=== PATIENT | female | born 1995 | race Caucasian/White ===

== ENCOUNTER 2023-05-22 13:03 | Emergency (ER) | payer OTHER, SELFPAY ==
[2023-05-22 13:04] VITALS: BP 158/88
[2023-05-22 13:29] LABS: % Basophils 0.3 % (0-2); % Eosinophils 1.8 % (0-6); % Immature Granulocytes 0.3 % (0-0.5); % Lymphocytes 19.5 % (20.5-51.1); % Monocytes 3.8 % (1.7-9.3); % Neutrophils 74.3 % (42.2-75.2); Absolute Eosinophils 0.2 10^3/uL (0-0.7); Absolute Monocytes 0.4 10^3/uL (0.1-0.6); Absolute Neutrophils 7.5 10^3/uL (1.4-6.5); Hematocrit 39.1 % (37.0-47.0); Hemoglobin 13.3 g/dL (12.0-16.0); Mean Corpuscular Hgb 28.4 pg (27.0-31.0); Mean Corpuscular Volume 83.5 fL (81.0-99.0); Mean Platelet Volume 9.1 fL (7.4-10.4); Nucleated Red Blood Cells % 0 %; Platelet Count 336 10^3/uL (130-400); Red Blood Cell Count 4.68 10^6/uL (4.20-5.40); Red Cell Dist. Width 12.6 % (11.5-14.5)
[2023-05-22 13:34] LABS: Urine Albumin Negative (Neg - Trace); Urine Bilirubin Negative (Negative); Urine Character Clear (Clear); Urine Color Yellow; Urine Glucose 3+ (Negative); Urine Ketone Trace (Negative); Urine Leukocyte Negative (Negative); Urine Nitrite Negative (Negative); Urine Occult Blood Negative (Negative); Urine Specific Gravity 1.015 (<1.030); Urine Urobilinogen Negative (Neg - 1+)
[2023-05-22 13:43] LABS: HCG, Serum Qualitative Screen Negative
[2023-05-22 13:47] LABS: ALT (SGPT) 20 U/L (0-35); AST (SGOT) 22 U/L (14-36); Alkaline Phosphatase 116 U/L (38-126); Blood Urea Nitrogen 12 mg/dl (7-17); Calcium 8.9 mg/dl (8.4-10.2); Carbon Dioxide 25 mmol/L (22-30); Chloride 101 mmol/L (98-107); Glucose 464 mg/dl (70-99); Lipase 92 U/L (23-300); Potassium 4.6 mmol/L (3.5-5.1); Sodium 131 mmol/L (135-145); Total Bilirubin 0.6 mg/dl (0.2-1.3); Total Protein 6.4 g/dl (6.3-8.2); eGFR > 60.00
[2023-05-22 15:54] LABS: Glucose - Point of Care 457 mg/dl (70-99)
[2023-05-22] MEDS: NSS 1000 IV (16:34)
--- NOTE | 2023-05-22 17:02 | ED.GENMED ---
History of Present Illness
General
Chief Complaint: Fainting/Passed Out
Source: patient
Exam Limitations: none
Time Seen by Provider: 05/22/23 16:41
Nursing documentation reviewed up to this point in time: agreed with
Travel History
Have you had any contact with someone who has COVID-19?: No
Do you have any symptoms of coronavirus? Fever > 100 degrees, chills, cough, shortness of breath, sore throat, loss of taste or smell, muscle aches, or headache?: No
History of Present Illness
History of Present Illness:
28-year-old female with past medical history of insulin-dependent diabetes bipolar disorder previous seizure disorder presenting to the emergency department after fainting while at work. 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
warm and she was doing physical activity felt very warm lightheaded nausea and also had lower abdominal pain passed out for a brief moment was witnessed by a coworker denies any specific injuries had ongoing abdominal pain that somewhat intermittent
crampy and sharp mainly to the right lower quadrant ongoing for multiple hours. Vomited 2 times. Denies any changes in bowel movements. She believes that she might have missed a dose of insulin last night.
Past History
Past History
ED Past Medical History: IDDM and Seizures
ED Past Surgical History: None
Social History
Tobacco: Non-smoker
Employment: Employed
Review of Systems
Review of Systems
Allergies reviewed?: Yes
All Other Systems: ROS reviewed and negative except as documented in HPI and ROS
Phy Exam
Physical Exam
Physical Exam:
GENERAL: Alert , in no apparent distress
EYE: pupils equal and reactive
NECK: Supple, no significant adenopathy.
ENT: o/p clr, mmm.
CARDIAC: Regular rate and rhythm .
LUNGS: Clear breath sounds bilaterally, no acute respiratory distress, no wheezes/rales/rhonchi
ABDOMEN: Right lower quadrant abdominal pain to palpation
NEUROLOGICAL: Alert and oriented, no focal neuro deficits
SKIN: Warm and dry, skin intact.
MUSCULOSKELETAL: No edema, well perfused.
PSYCH: Normal and appropriate interaction.
Course
Orders/Labs/Results
Orders:
Orders
05/22/23 13:08
Electrocardiogram (*1) Urgent
Reason for Study: Syncope
05/22/23 13:09
EKG- Treatment ONCE
Test Result ONCE
05/22/23 13:14
Complete Blood Count/With Diff Urgent
Comprehensive Metabolic Panel Urgent
HCG, Serum Qualitative Screen Urgent
Lipase Urgent
05/22/23 13:20
Urinalysis Reflex To Culture Urgent
Date Specimen was Collected: 05/22/23
Time Specimen was Collected: 13:11
05/22/23 16:34
0.9% Sodium Chloride 1000 ml [Nss] 1,000 ml IV BOLUS
05/22/23 16:54
CT Abd/Pel (IV only)-DH only Urgent
Comment:
Reason For Exam: rlq pain
Insulin Human Regular [Novolin R] 10 units IV NOW STA
05/22/23 17:02
Ketorolac [Toradol] 15 mg IV NOW STA
Ondansetron Injectable [Zofran] 4 mg IV NOW STA
05/22/23 20:30
Bedside Glucose- Treatment ONCE
Abnormal Lab Results
05/22/23 05/22/23 05/22/23
13:14 13:20 15:53
Absolute Neuts (auto) 7.5 H 10^3/uL
(1.4-6.5)
Lymphocytes % 19.5 L %
(20.5-51.1)
Sodium 131 L mmol/L
(135-145)
Glucose 464 H* mg/dl
(70-99)
Urine Ketones Trace A
(Negative)
Urine Glucose 3+ A
(Negative)
POC Glucose 457 H* mg/dl
(70-99)
05/22/23 05/22/23
17:15 18:14
Absolute Neuts (auto)
Lymphocytes %
Sodium
Glucose
Urine Ketones
Urine Glucose
POC Glucose 367 H mg/dl 162 H mg/dl
(70-99) (70-99)
05/22/23 13:14
05/22/23 13:14
Vital Signs
Initial and Last Documented VS:
Initial Vital Signs
Temp Pulse Resp BP Pulse Ox
98.8 F 114 18 158/88 100
05/22/23 13:04 05/22/23 13:04 05/22/23 13:04 05/22/23 13:04 05/22/23 13:04
Last Documented Vital Signs
Temp Pulse Resp BP Pulse Ox
98.3 F 76 20 122/72 99
05/22/23 19:06 05/22/23 20:15 05/22/23 20:15 05/22/23 20:15 05/22/23 20:15
MDM/Problems Addressed
MDM/Problems Addressed:
28-year-old female presenting to the emergency department today with concerns of right lower quadrant abdominal pain nausea vomiting and a syncopal episode prior to arrival. She claims that she was working in an indoor boards very warm and humid
was doing physical activity felt lightheaded passed out also has had since this morning awakening nausea and lower abdominal pain that has been ongoing since. On arrival initial heart rate was elevated but improving without specific treatment was
started on fluids also given Zofran and Toradol for symptoms. Additionally she was found to have significantly elevated sugar level but no signs of DKA with normal anion gap and normal bicarb. Was given dose of insulin. Otherwise plan for CT scan
for further assessment considering she does have reproducible tenderness to the right lower quadrant. CT scan without emergent findings patient generally well-appearing during reassessment initial sugar elevated but improving after receiving
insulin as well as fluids stable for outpatient management return precautions given.
*Critical Care Note
Total Time (30-74mins, 75-104mins- exclusive of procedures): Not Applicable
ED Attending Note
-
Portions of this chart may have been created with voice recognition software.� Occasional wrong word or��sound alike� substitutions may have occurred due to the inherent limitations of voice recognition software.
Discharge Plan
Departure
Patient Disposition: Home (Routine Discharge)
Date of Disposition: 05/22/23
Time of Disposition: 20:35
Patient with high blood pressure during this ER visit?: No
Condition: Good
Covid-19: Not Applicable
Discharge Problem:
Abdominal pain
Instructions: Abdominal Pain
Prescriptions:
New
ondansetron 4 mg tablet,disintegrating
4 mg PO Q8H PRN (Reason: nausea and vomiting) Qty: 7 0RF
No Action
fluoxetine 40 mg Capsule
40 mg PO DAILY
fluconazole 150 mg Tablet
150 mg PO TH@0800
trazodone 100 mg Tablet
100 mg PO HS PRN (Reason: sleep)
Novolin 70-30 FlexPen U-100 100 unit/mL (70-30) Insulin Pen
0 unit SC DIRECTED
Patient Comments:
05/22/2023, per pt., she uses this medication on a sliding scale AC. Pt. states that she has a 1:9 ratio that she uses; pt. states that 'if my blood sugar is 200, I subtract 120 and divide by 9' to get her dose of insulin.
aripiprazole 2 mg Tablet
2 mg PO DAILY
Referrals:
Geen Carrillo, [Family Provider] -
Stand Alone Forms: Return to Work
Activity Restrictions/Additional Instructions:
You came to the emergency department today with concerns of abdominal discomfort. Here your examination was reassuring you can take Zofran as needed. Return to the emergency department any worsening, new or concerning symptoms.
Interventions
Interventions:
*Risk Screen - Suicide Last Done: 05/22/23 13:04
*General Assessment Last Done: 05/22/23 13:04
*Neglect/Abuse Screening Last Done: 05/22/23 13:04
ED- Fall Risk Assessment Last Done: 05/22/23 19:06
*ED COVID-19 Vaccine History Last Done: 05/22/23 17:20
ED- Cardiac Assessment Last Done: 05/22/23 19:06
ED- Neurological Assessment Last Done: 05/22/23 19:06
[2023-05-22] MEDS: ZOFRAN 4 MG IV (17:12)
[2023-05-22] MEDS: TORADOL 15 MG IV (17:12)
[2023-05-22 17:17] LABS: Glucose - Point of Care 367 mg/dl (70-99)
[2023-05-22] MEDS: NOVOLIN R 10 UNITS IV (17:25)
[2023-05-22 18:15] LABS: Glucose - Point of Care 162 mg/dl (70-99)
[2023-05-22 18:35] VITALS: BP 134/85
[2023-05-22 19:06] VITALS: BP 114/78
[2023-05-22 20:15] VITALS: BP 122/72
== END 2023-05-22 20:50 | disposition home or self-care (01) ==
LOC: EMR 13:03
PROVIDERS: Student in an Organized Health Care Education/Training Program; EMERGENCY PHYSICIAN Emergency Medicine; FAMILY PHYSICIAN Family Medicine
DX: R10.31 Right lower quadrant pain (principal); E11.9 Type 2 diabetes mellitus without complications; F31.9 Bipolar disorder, unspecified
CPT/HCPCS: 99285; 96374; 96375 ×2; 96361; 74177; 80053; 81003; 82962; 83690; 84703; 85025; 93005; Q9967